=== PATIENT | male | born 1970 | race Caucasian/White ===

== ENCOUNTER 2016-11-09 19:47 | Emergency (ER) | payer SELFPAY ==
[~2016-11-09 19:47] MED LIST: CITALOPRAM PO; TESTOSTERONE
== END 2016-11-09 20:42 | disposition home or self-care (01) ==
LOC: SED 19:47
DX: J32.1 Chronic frontal sinusitis (principal); I10 Essential (primary) hypertension; Z98.890 Other specified postprocedural states
CPT/HCPCS: 99283